=== PATIENT | female | born 1970 | race Caucasian/White ===

== ENCOUNTER 2020-02-14 05:33 | Inpatient (IN) ==
[2020-02-07 11:50] LABS: Basophils % 0.5 % (0.0-0.8); Eosinophils # 0.1 10*3/uL (0.0-0.87); Eosinophils % 1.2 % (0.00-10.9); Hematocrit 42.3 VOL% (35.7-47.0); Hemoglobin 14.3 GM/DL (12.0-16.0); Immature Granulocytes % 0.3 %; Immature Granulocytes Absolute 0.02 #; Lymphocytes # 3.5 10*3/uL (1.4-4.0); Lymphocytes % 46.8 % (21.3-54.2); Mean Corpuscular HGB Conc 33.8 GM/DL (32-36); Mean Platelet Volume 10.4 FL (9.6-12.0); Monocytes % 7.4 % (1.7-12.7); Neutrophils % 43.8 % (38.7-73.9); Platelet Count 342 T/CUMM (130-400); Red Cell Distribution Width 12.2 % (9.3-17.3); White Blood Count 7.4 T/CUMM (4-12)
[2020-02-07 12:03] LABS: INR 0.9; PT Patient Result 9.9 SECS (9.8-11.9); Partial Thromboplastin Time 26.2 SECS (23.9-33.8)
[2020-02-07 12:07] LABS: Bilirubin,Urine Negative (Negative); Blood, Urine Negative (Negative); Calcium Oxalate Crystals,Urine Occasional /HPF (Few); Glucose,Urine (UA) Negative (Negative); Hyaline Casts,Urine 3 /LPF (0-3); Ketones,Urine Negative (Negative); Mucus,Urine Few /LPF (Occasional); Nitrite,Urine Positive (Negative); Protein,Urine Negative; RBC,Urine 4 /HPF (0-4); Squamous Epithelial Cell,Urine Occasional /HPF (0-10); Urine Appearance Slightly Hazy (Clear); Urine Color Yellow (Yellow); Urine Specific Gravity 1.018 (1.001-1.035); Urine Urobilinogen < 2.0 EU/DL (0.2-1.0); WBC,Urine 10 /HPF (0-6)
[2020-02-07 12:08] LABS: Albumin 4.1 G/DL (3.4-5.0); Bilirubin,Total 0.8 MG/DL (0.2-1.0); Calcium 9.9 MG/DL (8.5-10.1); Osmolality,Calculated 277.5 MOS/KG (273-304); Total Protein 7.6 G/DL (6.4-8.3)
[2020-02-14] MEDS ORDERED: VANCOMYCIN 1,000 MG VIAL ONE (05:57)
[2020-02-14] MEDS ORDERED: ceFAZolin 1,000 MG VIAL ONE (05:57)
[2020-02-14] MEDS ORDERED: ceFAZolin 1,000 MG in SYRINGE 1 EACH IV ONE (07:00)
[2020-02-14] MEDS ORDERED: VANCOMYCIN INJ 1,000 MG in SODIUM CHLORIDE 0.9% 250 ML IV ONE (07:00)
[2020-02-14] MEDS ORDERED: LACTATED RINGERS 1,000 ML IV SCH (07:00)
[2020-02-14] MEDS ORDERED: DIAZEPAM 5 MG TABLET ONE (07:47)
[2020-02-14] MEDS ORDERED: DIAZEPAM 5 MG TABLET PO STA (07:47)
[2020-02-14] MEDS ORDERED: MORPHINE 4 MG/1 ML VIAL IV PRN ×3 (09:07→14:15)
[2020-02-14] MEDS ORDERED: ZALEPLON 5 MG CAPSULE PO PRN (09:07)
[2020-02-14] MEDS ORDERED: ONDANSETRON 4 MG/2 ML VIAL IV PRN ×2 (09:07→11:07)
[2020-02-14] MEDS ORDERED: MAGNESIUM HYDROXIDE SUSP 30 ML UDCUP PO PRN (09:07)
[2020-02-14] MEDS ORDERED: TRANEXAMIC ACID 1,000 MG/10 ML VIAL ONE (09:32)
[2020-02-14] MEDS ORDERED: BACITRACIN OINT 0.9 GM PACK TOP ONE (09:33)
[2020-02-14 10:52] LABS: Amorphous Crystals,Urine Occasional /HPF (Few); Bacteria,Urine Occasional /HPF (Few); Bilirubin,Urine Negative (Negative); Blood, Urine Negative (Negative); Glucose,Urine (UA) Negative (Negative); Ketones,Urine Negative (Negative); Mucus,Urine Occasional /LPF (Occasional); Nitrite,Urine Negative (Negative); Protein,Urine Negative; Urine Appearance Slightly Hazy (Clear); Urine Color Yellow (Yellow); Urine Specific Gravity 1.015 (1.001-1.035); Urine Urobilinogen < 2.0 EU/DL (0.2-1.0); WBC,Urine 1 /HPF (0-6)
[2020-02-14] MEDS ORDERED: propofoL 200 MG/20 ML VIAL IV ONE (10:56)
[2020-02-14] MEDS ORDERED: MIDAZOLAM 2 MG/2 ML VIAL ONE (10:56)
[2020-02-14] MEDS ORDERED: LIDOCAINE 2% 5 ML VIAL ONE (10:56)
[2020-02-14] MEDS ORDERED: BUPIVACAINE SPINAL 0.75% 2 ML AMP SPINAL ONE (10:56)
[2020-02-14] MEDS ORDERED: BUPIVACAINE MPF 0.25% 30 ML VIAL ONE (10:57)
[2020-02-14] MEDS ORDERED: DEXAMETHASONE 4 MG/1 ML VIAL ONE (10:57)
[2020-02-14] MEDS ORDERED: fentaNYL 100 MCG/2 ML VIAL ONE (10:57)
[2020-02-14] MEDS ORDERED: ONDANSETRON 4 MG/2 ML VIAL ONE ×2 (10:57→11:31)
[2020-02-14] MEDS ORDERED: ROCURONIUM 100 MG/10 ML VIAL IV ONE (10:57)
[2020-02-14] MEDS ORDERED: PHENYLEPHRINE DRIP 20 MG/250 ML PREMIX IV ONE (10:58)
[2020-02-14] MEDS ORDERED: MEPERIDINE 25 MG/1 ML VIAL ONE ×2 (11:07→12:30)
[2020-02-14] MEDS: MEPERIDINE 25 MG/1 ML VIAL IV PRN ×2 (11:10→12:33)
[2020-02-14] MEDS ORDERED: HYDROmorphone 2 MG/1 ML VIAL ONE (11:31)
[2020-02-14] MEDS: HYDROmorphone 2 MG/1 ML VIAL IV PRN ×4 (11:35→12:37)
[2020-02-14] MEDS: ERYTHROMYCIN 0.5% OPHT OINT 3.5 GM TUBE LEFT EYE SCH ×3 (11:48→21:20)
[2020-02-14] MEDS: LACTATED RINGERS 1,000 ML IV SCH (13:03)
[2020-02-14] MEDS ORDERED: ceFAZolin 1,000 MG in SYRINGE 1 EACH IV SCH (13:07)
[2020-02-14] MEDS ORDERED: MORPHINE 10 MG/1 ML VIAL ONE (14:12)
[2020-02-14] MEDS: KETOROLAC 30 MG/1 ML VIAL IV SCH (19:16)
[2020-02-14] MEDS: ceFAZolin 1,000 MG in SYRINGE 1 EACH IV SCH (21:16)
[2020-02-14] MEDS: hydroCHLOROthiazide 25 MG TABLET PO SCH (21:20)
[2020-02-14] MEDS: DOCUSATE SODIUM 100 MG CAPSULE PO SCH (21:20)
[2020-02-15] MEDS: LACTATED RINGERS 1,000 ML IV SCH ×2 (00:10→02:48)
[2020-02-15] MEDS: KETOROLAC 30 MG/1 ML VIAL IV SCH ×3 (01:24→14:07)
[2020-02-15] MEDS: ceFAZolin 1,000 MG in SYRINGE 1 EACH IV SCH (05:31)
[2020-02-15] MEDS: FONDAPARINUX 2.5 MG/0.5 ML SYRINGE SUBCUT SCH (05:31)
[2020-02-15 06:15] LABS: Basophils % 0.2 % (0.0-0.8); Eosinophils % 0.3 % (0.00-10.9); Hematocrit 32.8 VOL% (35.7-47.0); Immature Granulocytes % 0.4 %; Immature Granulocytes Absolute 0.05 #; Lymphocytes % 26.2 % (21.3-54.2); Mean Corpuscular HGB Conc 33.5 GM/DL (32-36); Mean Corpuscular Volume 95.9 FL (87-102); Mean Platelet Volume 10.9 FL (9.6-12.0); Monocytes % 11.8 % (1.7-12.7); Neutrophils % 61.1 % (38.7-73.9); Platelet Count 227 T/CUMM (130-400); Red Blood Count 3.42 MC/CUMM (3.8-5.5); White Blood Count 11.3 T/CUMM (4-12)
[2020-02-15 06:54] LABS: Risk Ratio 3.08; VLDL CHOLESTEROL 23.2 MG/DL
[2020-02-15 06:59] LABS: Calcium 8.5 MG/DL (8.5-10.1); Osmolality,Calculated 284.1 MOS/KG (273-304)
[2020-02-15] MEDS: DOCUSATE SODIUM 100 MG CAPSULE PO SCH ×2 (09:09→21:02)
[2020-02-15] MEDS: hydroCHLOROthiazide 25 MG TABLET PO SCH ×2 (09:09→21:03)
[2020-02-15] MEDS: TOPIRAMATE 200 MG TABLET PO SCH (09:09)
[2020-02-15] MEDS: BISOPROLOL 5 MG TABLET PO SCH ×2 (09:19→21:02)
[2020-02-15] MEDS: ERYTHROMYCIN 0.5% OPHT OINT 3.5 GM TUBE LEFT EYE SCH ×4 (09:35→21:02)
[2020-02-15] MEDS: CELECOXIB 200 MG CAPSULE PO SCH (16:57)
[2020-02-15] MEDS: SIMVASTATIN 20 MG TABLET PO SCH (21:02)
[2020-02-16 05:35] LABS: Basophils % 0.3 % (0.0-0.8); Eosinophils # 0.1 10*3/uL (0.0-0.87); Eosinophils % 1.1 % (0.00-10.9); Hematocrit 32.4 VOL% (35.7-47.0); Immature Granulocytes % 0.3 %; Immature Granulocytes Absolute 0.03 #; Lymphocytes % 32.6 % (21.3-54.2); Mean Corpuscular Volume 94.7 FL (87-102); Mean Platelet Volume 10.8 FL (9.6-12.0); Monocytes % 12.3 % (1.7-12.7); Neutrophils % 53.4 % (38.7-73.9); Platelet Count 198 T/CUMM (130-400); Red Blood Count 3.42 MC/CUMM (3.8-5.5); Red Cell Distribution Width 12.3 % (9.3-17.3); White Blood Count 9.3 T/CUMM (4-12)
[2020-02-16] MEDS: FONDAPARINUX 2.5 MG/0.5 ML SYRINGE SUBCUT SCH (06:03)
[2020-02-16] MEDS ORDERED: oxyCODONE IR 5 MG TABLET PO PRN (08:19)
[2020-02-16] MEDS: oxyCODONE/ACETAMINOPHEN 5-325 MG TABLET PO PRN ×4 (09:08→23:48)
[2020-02-16] MEDS: TOPIRAMATE 200 MG TABLET PO SCH (09:09)
[2020-02-16] MEDS: BISOPROLOL 5 MG TABLET PO SCH ×2 (09:09→21:53)
[2020-02-16] MEDS: CELECOXIB 200 MG CAPSULE PO SCH (09:10)
[2020-02-16] MEDS: DOCUSATE SODIUM 100 MG CAPSULE PO SCH ×2 (09:10→21:53)
[2020-02-16] MEDS: ERYTHROMYCIN 0.5% OPHT OINT 3.5 GM TUBE LEFT EYE SCH ×4 (10:17→21:53)
[2020-02-16] MEDS: SIMVASTATIN 20 MG TABLET PO SCH (21:53)
[2020-02-17] MEDS: FONDAPARINUX 2.5 MG/0.5 ML SYRINGE SUBCUT SCH (05:47)
[2020-02-17] MEDS: oxyCODONE/ACETAMINOPHEN 5-325 MG TABLET PO PRN ×2 (05:58→10:48)
[2020-02-17 06:05] LABS: Basophils % 0.5 % (0.0-0.8); Eosinophils # 0.2 10*3/uL (0.0-0.87); Eosinophils % 2.3 % (0.00-10.9); Hematocrit 33.4 VOL% (35.7-47.0); Immature Granulocytes % 0.5 %; Immature Granulocytes Absolute 0.04 #; Lymphocytes # 3.2 10*3/uL (1.4-4.0); Lymphocytes % 37.3 % (21.3-54.2); Mean Corpuscular HGB Conc 32.9 GM/DL (32-36); Mean Corpuscular Volume 97.1 FL (87-102); Mean Platelet Volume 10.7 FL (9.6-12.0); Monocytes % 11.5 % (1.7-12.7); Neutrophils % 47.9 % (38.7-73.9); Platelet Count 206 T/CUMM (130-400); Red Blood Count 3.44 MC/CUMM (3.8-5.5); Red Cell Distribution Width 12.1 % (9.3-17.3); White Blood Count 8.6 T/CUMM (4-12)
[2020-02-17] MEDS: DOCUSATE SODIUM 100 MG CAPSULE PO SCH (09:14)
[2020-02-17] MEDS: TOPIRAMATE 200 MG TABLET PO SCH (09:14)
[2020-02-17] MEDS: CELECOXIB 200 MG CAPSULE PO SCH (09:15)
[2020-02-17] MEDS: ERYTHROMYCIN 0.5% OPHT OINT 3.5 GM TUBE LEFT EYE SCH ×2 (09:16→13:02)
[2020-02-17] MEDS: BISOPROLOL 5 MG TABLET PO SCH (09:25)
[2020-02-17 11:14] VITALS: BP 108/60
== END 2020-02-17 13:25 | disposition home health service (06) | DRG 470 ==
LOC: N.OR 05:33 → N.SDSINP 05:36 → EDSTATUS 10:00 → N.3E 15:20
PROVIDERS: ADMIT Orthopaedic Surgery; ATTEND Orthopaedic Surgery